=== PATIENT | female | born 1995 | race Caucasian/White ===

== ENCOUNTER 2022-11-10 10:33 | Day surgery (SDC) | payer BC ==
[2022-11-07 11:26] LABS: Hemoglobin 13.5 g/dL (12.0-15.5); Mean Corpuscular HGB CONC 33.3 g/dL (32.0-36.0); Mean Corpuscular Hemoglobin 29.7 pg (27.0-33.0); Mean Corpuscular Volume 89.2 fl (81.6-98.3); Mean Platelet Volume 10.5 fl (7.4-10.4); Platelet Count 259 10x3/uL (150-450); RBC Distribution Width 11.7 % (11.5-14.5); Red Blood Cell (RBC) Count 4.55 10x6/uL (3.90-5.03)
[2022-11-07 11:38] LABS: BHCG - Serum Negative (NEGATIVE); Pregs Control Background? CLEAR/WHITE (CLR/WHITE); Pregs Control Bar Appear? YES (CONTROL BAR)
[2022-11-08 10:39] VITALS: BMI 25.0
[2022-11-10] MEDS ORDERED: CEFAZOLIN 2 GM VIAL ONE (10:57)
[2022-11-10] MEDS ORDERED: Scopolamine 1.5 mg/72 hour Patch ONE (11:38)
[2022-11-10] MEDS ORDERED: Midazolam HCl 2 mg/2 ml Vial ONE (11:38)
[2022-11-10] MEDS ORDERED: PROPOFOL 20 ML ONE (11:44)
[2022-11-10] MEDS ORDERED: Lidocaine 1% PF 5 ML VIAL ONE (11:45)
[2022-11-10] MEDS ORDERED: Dexamethasone 20 MG/5 ML VIAL ONE (11:45)
[2022-11-10] MEDS ORDERED: Fentanyl 100 MCG/2 ML VIAL ONE (11:45)
[2022-11-10] MEDS ORDERED: Ondansetron PF 4 MG/2 ML Vial ONE (11:45)
[2022-11-10] MEDS ORDERED: Glycopyrrolate 0.2 MG/ML 5 ML SYRINGE ONE (12:07)
[2022-11-10] MEDS ORDERED: Meperidine HCl/PF 25 MG/ML VIAL ONE (12:24)
== END 2022-11-10 13:50 | disposition home or self-care (01) ==
LOC: CSHSDC 10:33
PROVIDERS: ATTEND Obstetrics & Gynecology
PROC: 0UPD8HZ Removal of Contraceptive Device from Uterus and Cervix, Via Natural or Artificial Opening Endoscopic (ICD-10-PCS; principal; 2022-11-10)
DX: Z30.432 Encounter for removal of intrauterine contraceptive device (principal); F41.9 Anxiety disorder, unspecified; F32.A Depression, unspecified; Z79.899 Other long term (current) drug therapy
CPT/HCPCS: 36415; 84703; 85027; 86850; 86900; 86901; 88300; J1100; J2175; J2250; J2405; J2704; J3010